=== PATIENT | male | born 1945 | race Caucasian/White ===

== ENCOUNTER 2025-01-14 20:07 | Inpatient (IN) | payer MEDICARE, OTHER, SELFPAY ==
[2025-01-14] VITALS (31 sets, daily range): BP systolic 112–246; BP diastolic 56–127; BMI 31.6; BMI 33.8
[2025-01-14] MEDS: TRANDATE 10 MG IV (16:10)
[2025-01-14 16:12] LABS: Hematocrit 37.7 % (39.0-52.0); Hemoglobin 12.7 g/dL (13.0-18.0); Mean Corp Hgb Conc. 33.7 g/dL (33.0-37.0); Mean Corpuscular Volume 95.4 fL (80.0-94.0); Nucleated Red Blood Cells % 0 % (-); Platelet Count 246 10^3/uL (130-400); Red Cell Dist. Width 12.4 % (11.5-14.5)
[2025-01-14 16:21] LABS: ALT (SGPT) 11 U/L (0-50); AST (SGOT) 16 U/L (17-59); Albumin 3.8 g/dl (3.5-5.0); Alkaline Phosphatase 65 U/L (38-126); Blood Urea Nitrogen 18 mg/dl (9-20); Calcium 9.1 mg/dl (8.4-10.2); Carbon Dioxide 28 mmol/L (22-30); Chloride 107 mmol/L (98-107); Estimated Creatinine Clearance 120 ml/min; Glucose 98 mg/dl (70-99); Magnesium 2.2 mg/dl (1.6-2.3); Potassium 4.1 mmol/L (3.5-5.1); Sodium 137 mmol/L (135-145); Total Protein 6.2 g/dl (6.3-8.2); eGFR > 60.00
--- NOTE | 2025-01-14 16:24 | ED.GENMED ---
History of Present Illness
General
Chief Complaint: Breathing Problem
Source: patient and records
Time Seen by Provider: 01/14/25 15:44
History of Present Illness
History of Present Illness:
79-year-old male with past medical history of hypertension, previous C. difficile colitis, previous prostate cancer presenting to the emergency department for evaluation of feeling unwell over the last few months, today worse with symptoms described
to be very fatigued and gradually worsening shortness of breath. Patient also describes sensation of lightheadedness that now requires him to use a cane to ambulate as he states he feels unsteady on his feet. Patient was supposed to go to the [place]
today for a regularly scheduled visit however states he was feeling too ill to go so decided to go back home and have his bring him here to the ER. Patient denies any fevers or infectious symptoms, chest pain, palpitations, lower extremity
edema, abdominal pain, nausea, vomiting. Patient does report good compliance with his antihypertensive regimen but does not take blood pressures routinely at home, [facility] usually manages blood pressure and he states his last appointment at the [facility] was
few months ago.
Past History
Past History
ED Past Medical History: Cancer (Prostate), HTN and Other (C. difficile recurrent, colitis, irritable bowel syndrome, arthritis, Anemia, ); Negative CAD, Hypercholesterolemia or IDDM
ED Past Surgical History: Orthopedic (L hip replacement, Right knee replacement), Urological (TURP) and Other (pilonidal cyst surgery as a child, wisdom teeth extraction); Negative Cardiac or Cholecystectomy
Social History
Tobacco: Former smoker
Alcohol: None
Drug: None
Personal:
Living: with family
Employment: Employed
Family History
Family History: Hypertension
Review of Systems
Review of Systems
All Other Systems: ROS reviewed and negative except as documented in HPI and ROS
Phy Exam
Physical Exam
Physical Exam:
GENERAL: Alert , in no apparent distress
EYE: conjunctiva clear
NECK: Supple
ENT: o/p clr, mmm.
CARDIAC: Regular rate and rhythm
LUNGS: Clear breath sounds bilaterally, no acute respiratory distress, no wheezes/rales/rhonchi
ABDOMEN: Soft, nontender, nondistended
NEUROLOGICAL: Alert and oriented
SKIN: Warm and dry, skin intact.
MUSCULOSKELETAL: well perfused.
PSYCH: Normal and appropriate interaction.
Scores
Heart Failure Risk
Heart Failure Risk Score: Not Applicable
Heart Score for Chest Pain Patients
STEMI patient?: Not applicable
Withdrawal Assessment of Alcohol
Withdrawal Assessment Completed?: Not applicable
Course
Orders/Labs/Results
Orders:
Orders
01/14/25 12:29
Electrocardiogram (*1) Urgent
Reason for Study: Chest Pain
EKG- Treatment ONCE
01/14/25 Dinner
Cholesterol Lowering
At Your Request: Full Participation
Cholesterol Lowering: Sodium, 2 Gram
01/14/25 15:54
CXR2 [CR Chest - 2 Views ] Urgent
Comment:
Reason For Exam: shortness of breath
01/14/25 16:02
Complete Blood Count/With Diff Urgent
Comprehensive Metabolic Panel Urgent
Magnesium Urgent
NT-proBNP Urgent
Phosphorus Urgent
Comment: ADD ON
TSH Reflex To Free T4 Urgent
Comment: ADD ON
Troponin I Urgent
01/14/25 16:04
CT Head W/o Iv Contrast Urgent
Comment:
Reason For Exam: lightheaded, BP >200/100
Labetalol HCl [Trandate] 10 mg IV NOW STA
01/14/25 17:15
Nicardipine 40 mg/200 ml [Cardene] 40 mg in 200 ml IV PER PROTOCOL
Initial dose in mg/hr, then titrate:: 2.5
Titrate to keep:: SBP 140 - 160 mmHg
Titrate by mg/hr:: 2.5 mg/hr
Frequency of titrations (minutes):: 5-15 minutes
Maximum dose in mg/hr:: 15
Begin to taper infusion when:: Remained at goal for 2hrs
Taper by mg/hr:: 2.5 mg/hr
Frequency of taper (minutes) if patient maintains goal:: every 15-30 minutes
Taper to off?: Yes
If infusion off & no longer maintaining goal:: Contact Provider
01/14/25 19:21
CARDIOLOGY CONSULT Routine
Consulting Provider: Ayden Rogers
Was physician already notified: Yes
Reason for consult: Hypertensive urgency, unassigned odd MR#
01/14/25 19:35
Add On- LAB Routine
Tests Added?: TSH with reflex
01/14/25 19:44
Admit/Transfer Patient As Directed
Co-Sign Provider:
Level of Care: Inpatient admission
Assign to:: ICU
Physician / Group: al villafana
Diagnosis: htn urgency, new NPH
Reason for Hospitalization: htn urgency, new NPH
Expected length of stay greater than two midnights?: Yes
ELOS- Estimated Length of Stay in days: 3
I certify the patient meets the requirements for IP care: Yes
01/14/25 19:46
Code Status As Directed
Resuscitation Status: Full Code
01/14/25 19:48
PRN Pain Medication Management As Directed
May give lesser potent ordered pain med per pt: Yes
preference::
Protocol:: Medication orders for pain may be administered in a
manner that supports deferring to patient preference
when the pt is:
- Requesting an ordered lesser potent pain medication.
Least to most potent pain medications are defined
as: acetaminophen < NSAID < tramadol < opioids
(morphine, oxycodone, hydromorphone).
- Requesting a lesser dose of the same medication IF
ORDERED.
- Requesting a less intrusive route of administration
if both routes are prescribed by the provider (PO <
IV).
01/14/25 21:02
Acetaminophen [Tylenol] 650 mg PO Q4HPRN PRN
Heparin 5,000 units SC Q12
Nicardipine 40 mg/200 ml [Cardene] 40 mg in 200 ml IV PER PROTOCOL
Initial dose in mg/hr, then titrate:: 5
Titrate to keep:: SBP 140 - 160 mmHg
Titrate by mg/hr:: 2.5 mg/hr
Frequency of titrations (minutes):: 5-15 minutes
Maximum dose in mg/hr:: 15
Begin to taper infusion when:: Remained at goal for 2hrs
Taper by mg/hr:: 2.5 mg/hr
Frequency of taper (minutes) if patient maintains goal:: every 15-30 minutes
Taper to off?: Yes
If infusion off & no longer maintaining goal:: Contact Provider
01/14/25 21:02
Activity As Directed
Activity Level: As Tolerated
Old Records Request [Obtain Records] As Directed
Dates of Information to be Released: 2024
Type of Information Requested: H&P
Medication List
Obtain Records from: [facility]
Vital Signs As Directed
Frequency: Per unit guidelines
Weight As Directed
Frequency: Daily
Pt Eval And Treat Routine
Activity Level: As Tolerated
DX Deep Vein Thrombosis Video Routine
01/15/25 03:31
Complete Blood Count/With Diff IN AM
Comprehensive Metabolic Panel IN AM
01/15/25 06:00
Echo 2D MMode Color/Doppler IN AM
Reason for Study: htn urgency
01/16/25 04:41
Complete Blood Count/With Diff IN AM
Comprehensive Metabolic Panel IN AM
Abnormal Lab Results
01/14/25
16:02
RBC 3.95 L 10^6/uL
(4.70-6.10)
Hgb 12.7 L g/dL
(13.0-18.0)
Hct 37.7 L %
(39.0-52.0)
MCV 95.4 H fL
(80.0-94.0)
MCH 32.2 H pg
(27.0-31.0)
Lymphocytes % 17.9 L %
(20.5-51.1)
Creatinine 0.6 L mg/dL
(0.7-1.3)
AST 16 L U/L
(17-59)
Total Protein 6.2 L g/dl
(6.3-8.2)
01/14/25 16:02
01/14/25 16:02
Vital Signs
Initial and Last Documented VS:
Initial Vital Signs
Temp Pulse Resp BP Pulse Ox
98.9 F 77 20 141/101 96
01/14/25 12:26 01/14/25 12:26 01/14/25 12:26 01/14/25 12:26 01/14/25 12:26
Last Documented Vital Signs
Temp Pulse Resp BP Pulse Ox
97.7 F 58 10 151/60 97
01/16/25 03:10 01/16/25 06:06 01/16/25 06:06 01/16/25 06:06 01/16/25 06:00
MDM/Problems Addressed
Differential Diagnosis Includes:
Hypertensive urgency/emergency
Uncontrolled hypertension
Renal dysfunction
CVA
ACS
Valvular dysfunction
MDM/Problems Addressed:
79-year-old male presenting to the ER for evaluation of reportedly feeling unwell for the last 2 months, today worse, found to be profoundly hypertensive here with multiple systolic readings greater than 200 and diastolic readings greater than 100
patient also noting some mild shortness of breath. No tachypnea or tachycardia noted and pulse ox persistently between 97 and 99% on room air. Will treat profound hypertension with labetalol intravenously. Labs CT and EKG ordered. Disposition
pending
Chronic conditions affecting care: HTN
Acute Exacerbation and/or Progression of Chronic Illness: HTN
*Radiology
Radiology exam reviewed: radiology read reviewed
*Pulse Oximetry
SaO2: 99
Oxygen Mode of Delivery: Room air
Patient hypoxic: no
*EKG
Heart Rate: 67
Rate: normal
Rhythm: sinus
[place]: normal axis
Ischemia: T-wave inversion (v4-v6)
*Mannequin Coloring Artist Interpretation
Rate: normal
Heart Rate: 72
Rhythm: sinus
*Critical Care Note
Total Time (30-74mins, 75-104mins- exclusive of procedures): 32
comment:
Critical care statement: A total of 32 minutes of critical care time was provided for this patient. This includes management of unstable vital signs, evaluation of the patient at bedside, reviewing the patient's pertinent medical records, discussion
with consultants, review of old EKGs and review of pertinent medical records. This time with separate from time utilized to perform the aforementioned documented procedures
Data Reviewed
Review of Other/Old Records Reveals: Labs and Records
Patient Management
Discussion with other providers: Hospitalist
Escalation/DeEscalation of care consider admission/obs:
Patient with minimal improvement of his blood pressure following labetalol. Nicardipine drip started. Mild elevation of BNP. Head CT reviewed which does not show any acute abnormalities. Will notify hospitalist team for admission for
hypertensive emergency.
ED Attending Note
-
Portions of this chart may have been created with voice recognition software.� Occasional wrong word or��sound alike� substitutions may have occurred due to the inherent limitations of voice recognition software.
Discharge Plan
Departure
Patient Disposition: Admit
Date of Disposition: 01/14/25
Time of Disposition: 19:02
Presentation/result/management discussed w/ accepting MD/DO: Hospitalist
Discharge Problem:
Hypertensive urgency, Normal pressure hydrocephalus
Interventions
Interventions:
*General Assessment Last Done: 01/14/25 12:26
*Neglect/Abuse Screening Last Done: 01/14/25 12:26
*ED- Fall Risk Assessment Last Done: 01/14/25 15:56
*Nursing Disposition Last Done: 01/14/25 20:47
ED- Cardiac Assessment Last Done: 01/14/25 15:56
ED- Pulmonary Assessment Last Done: 01/14/25 15:56
Discharge Date and Time
Discharge Date/Time: 01/14/25 20:58
[2025-01-14 16:33] LABS: Troponin I 0.016 ng/ml
[2025-01-14] MEDS: CARDENE 200 IV ×2 (17:15→22:23)
--- NOTE | 2025-01-14 19:25 | HPS.HSE ---
Family Physician
-
Family Physician: Yenni Mar
Chief Complaint
-
Fatigue, shortness of breath
History of Present Illness
79-year-old male complaining of feeling unwell over the past few months today with worsening symptoms of fatigue and shortness of breath along with lightheadedness and feeling unsteady on his feet. He was supposed to go to the [place] for a regularly
scheduled visit however he felt too ill and decided to come home and have his bring him to the ER. On arrival he was noted to be hypertensive with hypertensive urgency. He denies headache, blurred vision, fever, chills, chest pain,
palpitations, cough, shortness of breath, lower extremity edema, abdominal pain, nausea, vomiting, diarrhea, urinary symptoms. He reports compliance with antihypertensive regimen he has past medical history of hypertension, prostate cancer,
recurrent C. difficile, colitis, IBS, arthritis, anemia, former smoker, ambulatory dysfunction uses cane at baseline
Medical History
Past Medical History
Past Medical History: Reports Other
Additional Past Medical History:
hypertension
prostate cancer
recurrent C. difficile
colitis
IBS
arthritis
anemia
former smoker
Past Surgical History: Reports Other
Additional Past Surgical History:
L hip replacement, Right knee replacement), Urological (TURP) and Other (pilonidal cyst surgery as a child, wisdom teeth extraction
Social History
Tobacco: Former Smoker (Quit 40 years ago)
Alcohol: None
Drug: None
Personal:
Living: With Family ()
Employment: Retired
Family History
Family History: Not pertinent
Allergies / Home Medications
Allergies reflects when Allergies were last updated in [facility].
Home Medications with original date entered in [facility]
Allergy/Medication List:
Medications on admission are unable to be verified or confirmed at this time.
Patient does not know list states he gets all of his medications from [facility]
Review of Systems
-
History Source: Patient
A 12 point ROS was completed and negative except as noted: Yes
Constitutional: Denies Fever or Fatigue
EENT: Denies Sore Throat or Runny Nose
Respiratory: Reports Trouble Breathing (RAINEY); Denies Cough
Cardiac: Denies Chest Pain, Diaphoresis, Palpitations or Syncope
Abdomen/GI: Denies Abdominal Pain, Nausea, Vomiting, Diarrhea or Constipated
: Denies Dysuria, Frequency, Flank Pain, Incontinence or Difficulty Voiding
Musculoskeletal: Denies Joint Pain or Edema
Skin: Denies Itching or Rash
Neurological: Reports Weakness (Generalized); Denies Dizzy or Headache
Endocrine: Reports No Symptoms
Hematologic/Lymphatic: Reports No Symptoms
Psych: Reports Calm
Physical Exam
Vital Signs
Vital Signs
Temp Pulse Resp BP Pulse Ox
98.9 F 77 13 112/77 96
01/14/25 15:56 01/14/25 19:00 01/14/25 19:00 01/14/25 19:00 01/14/25 18:45
Physical Exam
General: Comfortable, Conversant and Obese; No Pain, Fever or Chills
HEENT: NormoCephalic, Anicteric, Moist mucous membranes, PERRLA, [place] Conjunctivae and No Ptosis
Respiratory: Clear; No Wheezes, Rales or Rhonchi
Cardiac: S1/S2 and Regular Rhythm; No Murmur, Rub, Gallop or Peripheral Edema
Breast: Deferred by me
GI: Soft, Non Tender, Non Distended, Normal Bowel Sounds and No Hepatosplenomegaly
Rectal: Deferred by Provider
Genito-urinary: Deferred by me
Musculoskeletal: No Clubbing, No Cyanosis and No Edema
Skin: Warm and Dry; No Rash or Jaundice
Neuro: AO x 3, No Motor Deficits, Nonfocal/grossly intact and No Sensory Deficits; No Slurred Speech, Facial Droop, Tremors or Sedated
Psych: Calm
Laboratory Results
-
01/14/25 16:02
01/14/25 16:02
Laboratory Results
Total Bilirubin 0.7 mg/dl (0.2-1.3) 01/14/25 16:02
AST 16 U/L (17-59) L 01/14/25 16:02
ALT 11 U/L (0-50) 01/14/25 16:02
Alkaline Phosphatase 65 U/L (38-126) 01/14/25 16:02
Troponin I 0.016 ng/ml 01/14/25 16:02
Data Reviewed
-
Diagnostic Radiology: Report Reviewed by me
CT Scan: Report Reviewed by me
Lab Data: Labs Reviewed by me
Impression/Plan
-
Impression/plan:
Admit to ICU
#Hypertensive urgency/HTN�benign
BP 244/100 post IV Cardene drip 112/77
- Consult CBC cardiology
- Check 2D echo
- Obtain med rec list from [facility] in a.m.
# NEW NPH
- Dr. Diaz made aware states outpatient workup may have physical therapy evaluate gait then undergo LP
CT head: 1. Moderate to severe diffuse distention of the ventricular system suggesting NORMAL PRESSURE COMMUNICATING HYDROCEPHALUS.
Ex vacuo ventricular dilatation is an alternative diagnostic possibility.
2. SEVERE WHITE MATTER LEUKOARAIOSIS in the frontal and parietal lobes.
#Prostate cancer hx
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
#Colitis
#IBS
#Arthritis
#Anemia�macrocytic
Hgb 12.7
#Former smoker
#Chronic ambulatory dysfunction
-Uses cane at baseline
#Class I obesity�BMI 31.6
Affects all aspects of care
Weight loss recommend
DVT prophylaxis
SCDs
Full code
--- NOTE | 2025-01-14 19:31 | W.PN.UPDATE ---
Update Note
Progress Note Update
I have independently examined the patient and agree with assessment and plan written on the same date. In addition:
79yo came with generalized malaise, found HTN urgency and NPH on CT
-Cardene drip, Cardio, Echo
-Neurology consult
-Check TSH
We have spent at least 77min admitting the patient
--- NOTE | 2025-01-14 20:45 | PHANOTE ---
01/14/2025, [facility] [place]; pt. does not know his own meds.; spouse not accessible at time of interview; pt. has no pharmacy records; the meds. that are currently part of his med. list are from 2014 and ecw
records are from 2016; could not confirm pt.'s meds. at time of interview.
[2025-01-14 21:18] LABS: Glucose - Point of Care 116 mg/dl (70-99)
[2025-01-14] MEDS: HEPARIN 5000 UNITS SC (21:35)
[2025-01-14] MEDS: TYLENOL 650 MG PO (21:35)
--- NOTE | 2025-01-14 22:00 | PTCARENOTE ---
Received pt from ED RN, pt pulled over to our bed. Pt is AAOx3, [place] PASS. NSR w/ PVCs on the monitor, trace pedal edema, weak pedals. Received pt on Cardene gtt @ 7.5 mg/hr (see worklist), goal SBP 140-160. Pt on RA O2 sat 94%, lungs diminished. Pt uses
the urinal in bed. CHG bath provided. Call chaparro in reach. Safe environment maintained.
[2025-01-14 22:44] LABS: INR 0.95; PT 13.2 Sec (11.4-14.6)
[2025-01-14 22:45] LABS: APTT 28.4 Sec (23.4-35.0)
[2025-01-15] VITALS (54 sets, daily range): BP systolic 100–181; BP diastolic 46–119; PULSE 86; BMI 33.7
--- NOTE | 2025-01-15 01:09 | PTCARENOTE ---
Systems reviewed, no new changes in assessment. Cardene gtt maintained (see worklist). Call chaparro in reach. Safe environment maintained.
[2025-01-15] MEDS: TYLENOL 650 MG PO ×2 (03:26→09:45)
--- NOTE | 2025-01-15 03:42 | PTCARENOTE ---
Systems reviewed. Cardene gtt maintained. Pt c/o ESPARZA 08/18 pain, PRN Tylenol given (see MAR). AM labs drawn. Call chaparro in reach. Safe environment maintained.
[2025-01-15 03:52] LABS: Hematocrit 38.6 % (39.0-52.0); Hemoglobin 12.8 g/dL (13.0-18.0); Mean Corp Hgb Conc. 33.2 g/dL (33.0-37.0); Mean Corpuscular Volume 96.3 fL (80.0-94.0); Nucleated Red Blood Cells % 0 % (-); Platelet Count 253 10^3/uL (130-400); Red Cell Dist. Width 12.4 % (11.5-14.5)
[2025-01-15 04:19] LABS: ALT (SGPT) 11 U/L (0-50); AST (SGOT) 16 U/L (17-59); Albumin 3.8 g/dl (3.5-5.0); Alkaline Phosphatase 69 U/L (38-126); Blood Urea Nitrogen 13 mg/dl (9-20); Calcium 8.9 mg/dl (8.4-10.2); Carbon Dioxide 28 mmol/L (22-30); Chloride 108 mmol/L (98-107); Estimated Creatinine Clearance 117 ml/min; Glucose 103 mg/dl (70-99); Magnesium 2.2 mg/dl (1.6-2.3); Potassium 3.5 mmol/L (3.5-5.1); Sodium 139 mmol/L (135-145); Total Protein 6.1 g/dl (6.3-8.2); eGFR > 60.00
[2025-01-15] MEDS: KCL 20 MEQ PO (06:13)
--- NOTE | 2025-01-15 07:07 | CON.INTV ---
Addendum entered and electronically signed by Cristy Manzo MD 01/15/25 15:53:
Patient seen and examined independently by myself. History obtained from the patient and reviewing the chart. Resident note reviewed below. Agree with assessment and plan.
Briefly, patient is a pleasant 79-year-old male with history of hypertension. He does not have any other significant medical history. He admits to taking Flomax and clonidine as an outpatient. Records suggest he may have been on lisinopril in the
past. He cannot recall why this may have been stopped. He last saw his primary physician at the [facility] at [place] about 6 months ago. He brought himself into [facility] because of fatigue, lightheadedness and some shortness of breath. He
denied chest pain, fevers, cough. Upon arrival to [facility], afebrile, pulse 77, blood pressure 140s/100s, however increased to 240s/100s at 1 point. Patient was started on Cardene with improvement, admitted to ICU for further management
Patient does not see a dress draper. Denies any recent changes in medication. Denies history of sleep apnea. Denies any change in diet
For details regarding past medical history, family history, social history, review of systems see below. Patient denies any allergies.
Physical exam
Patient currently on room air, large neck, narrow posterior oropharynx
Chest exam is clear, no murmurs
Abdominal exam soft, he is obese
Extremities no clubbing, cyanosis or edema
Neurological exam nonfocal
Data reviewed
Chest x-ray with mild cardiomegaly
EKG with evidence of LVH
Head CT with no acute findings except normal pressure hydrocephalus
A/P
At this time, patient is clinically improved, blood pressure improved with Cardene. He was also started back up on Cardene and lisinopril was added
Patient feels he is presently back to his baseline
Echocardiogram is pending
Patient denies any history of falls, incontinence, nausea
He is not aware of a diagnosis of NPH
Further workup and follow-up will be deferred to his [facility] primary physician
Patient also likely has underlying sleep disordered breathing which may be contributing to his poorly controlled blood pressure
Additionally, unclear whether his pressure is worse because stopped taking his lisinopril
We will try to wean Cardene later today
Patient aware of risks of stroke
It is imperative that he follow-up for blood pressure checks post discharge depending on how he clinically progresses
Reviewed with critical care nursing
Will follow
TCCT 31 min
Original Note:
Consultation
Consultation Request
Date/Time Consultation Requested: January 15, 2025
Date/Time Consultation Performed: January 15, 2025
Medical History
-
Chief Complaint: fatigue, lightheadedness
History of Present Illness:
79 yo M PMH of HTN complaining of fatigue, dyspnea, lightheadedness. He was scheduled to go to [place] for appointment but instead presented to ED because he was not feeling well.
ED course: VS n/f BP in 230s/120s, given labetalol. He endorses headache and dyspnea, but denies blurry vision, chest pain. He was admitted to ICU for further management and is currently on nicardipine.
Interim/overnight, BP ranged 120s to 180s / 80s-90s, most recently 169/85. Was administered acetaminophen for headache.
This morning, he denies headache, blurry vision, chest pain, dyspnea. He denies difficulty speaking or focal muscle weakness.
Past Medical History
Past Medical History: HTN
Social History
Alcohol: None
Drug: None
Personal:
Living: With Family
Allergies / Home Medications
Allergies
Allergy/AdvReac Type Severity Reaction Status Date / Time
No Known Allergies Allergy Verified 01/14/25 12:29
Home Medications
�Medication �Instructions �Recorded �Confirmed �Last Taken �Type
mesalamine 400 mg capsule,delayed 1,200 mg PO BID 01/06/14 01/09/15 01/08/15 History
release (Delzicol)
solifenacin 10 mg tablet (Vesicare) 10 mg PO DAILY 01/06/14 01/09/15 01/08/15 History
aspirin 81 mg tablet,delayed 81 mg PO DAILY ##0 01/12/15 Unknown Rx
release
atorvastatin 10 mg tablet 10 mg PO QPM ##30 01/12/15 Unknown Rx
clonidine HCl 0.1 mg tablet 0.1 mg PO BID ##60 01/12/15 Unknown Rx
clopidogrel 75 mg tablet 75 mg PO DAILY ##30 01/12/15 Unknown Rx
lisinopril 10 mg tablet 10 mg PO DAILY ##30 01/12/15 Unknown Rx
Review of Systems
-
History Source: Patient
Constitutional: No Symptoms
EENT: No Symptoms
Respiratory: Other (denies dyspnea)
Cardiac: Other (denies chest pain)
Abdomen/GI: No Symptoms
: No Symptoms
Musculoskeletal: No Symptoms
Skin: No Symptoms
Neuro: Headache
Endocrine: No Symptoms
Hematologic/Lymphatic: No Symptoms
Vitals / Labs / Diagnostic Testing
Vital Signs
Temp Pulse Resp BP Pulse Ox
98.4 F 71 12 175/66 92
01/15/25 03:46 01/15/25 06:30 01/15/25 06:30 01/15/25 06:30 01/15/25 06:30
Lab Data
01/15/25 03:31
01/15/25 03:31
Laboratory Results
01/14/25
22:28
PT 13.2
INR 0.95
APTT 28.4
Labs
Hgb 12.8
K+ 3.5
Cr 0.5
TSH 2.22
Albumin 3.8
Diagnostic Testing:
CXR: mild cardiomegaly
CT Head noncon: normal pressure hydrocephalus
EKG: normal sinus rhythm with LVH
Physical Exam
-
HEENT: Normocephalic
Cardiovascular: Regular Rhythm and Murmur (no murmur on my exam)
Respiratory: Clear
GI: Soft
Neurology: Awake, Alert and No Motor Deficits
Skin: Warm
General: Comfortable
Assessment
-
In summary, this is a 79 yo M with PMH of HTN presenting with headache, dyspnea, fatigue, lightheadededness in the setting of elevated BP to the 230s/120s with most concern for HTN urgency.
There are no signs of end-organ damage: endorses headache but denies blurry vision, kidney function within normal limits Cr 0.5, mental status within normal limits, denies dyspnea in the AM (no crackles on my exam). Altogether these reassure against
hypertensive emergency.
Given that he gets care at the [facility], we will follow up to reconcile medications and determine which regimen is appropriate.
Neuro:
- communicating appropriately, moving 4 extremities, no focal deficits
- Normal pressure hydrocephalus is a separate issue that is likely not contributing to HTN.
CV:
- nicardipine 40mg IV
- medication reconciliation
Renal:
- Cr 0.5
Heme:
- heparin for dvt ppx: adjust to 5000 q8h given kidney function within normal limits.
Recommendations are not final until attg note/attestation
Data Reviewed
-
Radiology: Report reviewed by me
CT Scan: Report reviewed by me
[2025-01-15] MEDS: HEPARIN 5000 UNITS SC ×2 (08:24→16:22)
[2025-01-15] MEDS: CARDENE 200 IV (08:24)
--- NOTE | 2025-01-15 09:11 | PTCARENOTE ---
report received, assessments per work list. patient with slight droop right eyelid, patient states this is preexisting and his baseline. monitor nsr, cardene adjustment as per orders. denies headache. using urinal, oob to chair to commode. smear of
stool. call chaparro in reach
--- NOTE | 2025-01-15 12:17 | CM ---
Initial assessment completed with patient who lives with his in a 2 story home plus basement with B/B on 2nd, no bath on 1st, no steps to enter home. 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 He also has a RW in the home
but does not use. He does drive. No in-home services. No HC-POA. Was in the [employer] during [place] [employer] and has VA benefits. PCP is Dr. Yenni Mar at the [place]. Pharmacy is [facility] on [address] in [place]. Discharge POC: Anticipate home with no
needs.
--- NOTE | 2025-01-15 12:32 | CON.CAR ---
Addendum entered and electronically signed by Ayden Rogers MD 01/15/25 19:04:
79-year-old man admitted with hypertensive urgency, is followed in the [place] medical system. Chronically on clonidine for hypertension, details of his management strategy currently unknown. He states he does have some issues with cognition and has
had difficulty with balance. He denies urinary incontinence.
PMH: Hypertension, prostate cancer, TIA 2015, history of colitis, hypercholesterolemia, BPH (old problem list includes normal pressure hydrocephalus and orthostasis)
PSH: Left total hip arthroplasty, pilonidal cyst
SH: , smoked as a teen, no alcohol, retired
Rest of per Eva Schmitt as below.
135/81 upon presentation 238/95, pulse 73, respirate 16, weight 100.4 kg, pleasant, somewhat slow to respond, head neck exam unremarkable, neuro nonfocal, lungs clear, regular rate and rhythm without obvious murmur, abdomen benign, extremities
without clubbing cyanosis or edema
Head CT dilatation of the ventricular system severe white matter leukoaraiosis
Chest x-ray: Cardiomegaly EKG sinus rhythm, LVH lateral T wave changes consistent with LVH
Hemoglobin 12.8, potassium 3.5, BUN/creatinine 13 and 0.5, proBNP 1170, troponin 0.016
Echo: Pending, last echo 2014 EF 55-60%
Impression:
Hypertensive urgency
Suspicion for normal pressure hydrocephalus
Remote TIA
History of prostate cancer hypercholesterolemia
History of colitis
BPH
Macrocytosis
Plan:
He presents with hypertensive urgency, blood pressure now better controlled. As an outpatient he had been on clonidine only, and states he had not missed any doses, so rebound hypertension likely not an issue unless he is incorrect in stating he
has not missed clonidine. Now on lisinopril. Will uptitrate medications as needed for his blood pressure.
CT scan suggestive of normal pressure hydrocephalus and he has 2 of 3 characteristics (denies incontinence) with some gait difficulties and memory issues. Defer to hospitalist in this regard.
Await echocardiogram.
Defer to hospitalist whether evaluation is warranted regarding normal pressure hydrocephalus. There is a link between hypertension and NPH.
proBNP was modestly elevated and troponin was minimally detectable. We can decide whether or not an ischemic evaluation is necessary as an outpatient. However detectable troponin is a non-ACS myocardial injury.
We will continue to follow.
Original Note:
Consultation
Consultation Request
Date/Time Consultation Requested: 01/14/25 at 1921
Date/Time Consultation Performed: 01/15/25 at 1232
Requesting Provider: Dr. Lozada
Performing Provider: Dr. KIESHA Rogers
Reason for Consultation: HTN urgency
Medical History
-
History of Present Illness:
Patient came to the ER yesterday with generalized weakness after he was unable to make it to his previously scheduled [place] doctor appointment and was admitted to the hospital with HTN urgency and cardiology is now consulted. Patient does not see a
grain elevator agent as an outpatient, but does follow with his doctors at the [place] and is seen at least every 6 months. He says that he saw Dr. Mar at the [place] 1 month ago, but does not remember if his blood pressure was taken. He does not recall any
recent medication changes. Patient is chronically on clonidine 0.2 mg BID for HTN, but does not recall if he has had reactions or been unresponsive to other BP meds in the past. Patient denies any previous cardiac testing. Patient denies previous
admission for HTN urgency/emergency. Patient has had previous admission to [facility] for colitis, but is not frequently in the ER or requiring admission. He says he does not go to another hospital. I was able to find his discharge summary from
admission for TIA back in 2014 at that time he was taking clonidine 0.1 mg BID plus lisinopril 10 mg daily and it is unclear when lisinopril was stopped or why. Patient was also taking lisinopril had an ER visit here in 2021 for fever.
PMH:
h/o HTN with LVH
h/o prostate CA
h/o IBS and colitis
Past Medical History
Past Medical History: Other (in HPI)
Past Surgical History: Orthopedic (left DION) and Other (pilonidal cyst as a child)
Social History
Tobacco: Former Smoker (smoked age 18)
Alcohol: None
Drug: None
Personal:
Living: With Family
Family History
Family History: Hypertension
Allergies / Home Medications
Allergy/AdvReac Type Severity Reaction Status Date / Time
No Known Allergies Allergy Verified 01/14/25 12:29
�Medication �Instructions �Recorded �Confirmed �Type
aspirin 325 mg tablet 325 mg PO DAILY Blood Clot 01/15/25 01/15/25 History
Prevention/Tx
atorvastatin 10 mg tablet 10 mg PO QPM High Cholesterol 01/15/25 01/15/25 History
calcium 500 mg (as 1 tab PO BID Supplement 01/15/25 01/15/25 History
carbonate)-vitamin D3 5 mcg (200
unit) tablet (Calcium 500 + D)
clonidine HCl 0.2 mg tablet 0.2 mg PO BID Blood Pressure 01/15/25 01/15/25 History
tamsulosin 0.4 mg capsule 0.4 mg PO QPM Urinary Issue 01/15/25 01/15/25 History
vit C 250 mg-E 90 mg-zinc 40 1 tab PO QAM AND QPM Supplement 01/15/25 01/15/25 History
mg-copper 1 wt-tjryqw-ebjqqu chew
tablet (PreserVision AREDS-2)
Review of Systems
-
History Source: Patient
All other systems: Negative unless noted
Physical Exam
Vital Signs
Temp Pulse Resp BP Pulse Ox
98.3 F 78 17 153/75 95
01/15/25 11:49 01/15/25 11:45 01/15/25 11:45 01/15/25 11:45 01/15/25 11:45
GEN: NAD. AAOx3
HEENT: EOMI, MMM
LUNGS: RA. CTA B/L, no wheeze
CV: SR on tele. Reg, S1/S2, no murmur
ABD: soft, BS+, NT, ND
EXT: No clubbing, cyanosis, lesions or edema B/L
NEURO: Gross non-focal
SKIN: Warm, dry and pink. No rash
Lab Results
01/15/25 03:31
01/15/25 03:31
Troponin I 0.016 ng/ml 01/14/25 16:02
Ufv-F-Fwmuvetnffq Pept 1170 pg/ml 01/14/25 16:02
Impression / Plan
-
PCP: Dr. Mar through the [place]
Card: None prior to admission
Impression:
Admitted with HTN urgency 01/14/[address] head, apparently a new diagnosis, 01/14/25
HTN urgency
h/o HTN with LVH
h/o prostate CA
h/o IBS and colitis
Macrocytic anemia
Echo 01/10/2015: TDS, EF 55 to 60%, moderate concentric LVH, no intracardiac mass or thrombus
Echo 01/15/2025: Study pending
Plan:
-Patient came to the ER yesterday with generalized weakness after he was unable to make it to his previously scheduled [place] doctor appointment and was admitted to the hospital with HTN urgency and cardiology is now consulted. Patient does not see a
grain elevator agent as an outpatient, but does follow with his doctors at the [place] and is seen at least every 6 months. He says that he saw Dr. Mar at the [place] 1 month ago, but does not remember if his blood pressure was taken. He does not recall any
recent medication changes. Patient is chronically on clonidine 0.2 mg BID for HTN, but does not recall if he has had reactions or been unresponsive to other BP meds in the past. Patient denies any previous cardiac testing. Patient denies previous
admission for HTN urgency/emergency. Patient has had previous admission to [facility] for colitis, but is not frequently in the ER or requiring admission. He says he does not go to another hospital. I was able to find his discharge summary from
admission for TIA back in 2014 at that time he was taking clonidine 0.1 mg BID plus lisinopril 10 mg daily and it is unclear when lisinopril was stopped or why. Patient was also taking lisinopril had an ER visit here in 2021 for fever.
-ECG reviewed by me as NSR with repolarization abnormality, but no acute ST changes
-Outpatient dose of clonidine 0.2 mg BID was stopped on admission for unclear reasons and I have restarted ordering an urgent dose for now. Clonidine should not be abruptly stopped.
-Cardene gtt started in the ER and was down to 2 mg/hr this morning, but then BP increased and now back up to 5 mg/hr. Goal is to wean Cardene today.
-In addition to restarting clonidine will also start lisinopril 10 mg daily with a now dose, orders placed by me. Patient had been on lisinopril on records I can find from ER visits in 2014 and 2021 and it is not clear why it may have been stopped.
There is no evidence on lab work that would preclude restarting lisinopril and no allergy listed.
-Check echo, study pending and EF previously preserved
-Patient diagnosed with NPH on CT scan in the ER yesterday, not sure if there is any plan for workup at this time
--- NOTE | 2025-01-15 12:59 | PTCARENOTE ---
patient reassessed. cardene per work list. ambulated in room with PT, rolling walker. spouse brought in home medications for med reconciliation. entered by pharmacy. spouse, patient instructed to bring meds home when spouse visits later today
[2025-01-15] MEDS: CATAPRES 0.2 MG PO ×2 (13:49→19:40)
[2025-01-15] MEDS: ZESTRIL 10 MG PO (13:49)
--- NOTE | 2025-01-15 14:46 | CARDSERVDEF ---
Echocardiogram with Definity completed after protocol screening completed. Allergies verified.
Patent IV site: __Rt AC___
IV site flushed with 0.9% NaCl pre and post administration.
Diluted bolus method utilized to enhance visualization of ventricular moise.
Total volume given: __1.5__ mL
Patient tolerated all procedures well without complications.
--- NOTE | 2025-01-15 15:47 | W.PN.HOSP.TC ---
Today's Communication/Plan
-
Neuro consult
Once BP is controlled, will plan on dc for outpt evaluation, ? at DC
Assessment / Plan
Assessment / Plan
Admit to ICU
#Hypertensive urgency/HTN�benign
BP 244/100 post IV Cardene drip 112/77, Cardene being weaned off
- Consulted [facility] cardiology
- 2D echo: Normal left ventricular chamber size. Moderate concentric left ventricular
hypertrophy. Technically difficult study with suboptimal imaging due to body
habitus. LIMITED VIEWS !!! The aortic root is top normal to mildly dilated in
siz
The IVC was not well visualized. In limited views, there is no clear evidence
of shunting via color flow doppler. No intracardiac mass or thrombus formation
seen
Overall, LV systolic function is probably normal. Left ventricular ejection
fraction is 55-60%.
No prior study available for comparison.
- Obtain med rec list from [facility] was on Clonidine, Lisinopril 10 mg daily added
BP most recently 140/74
# NEW NPH
- Neuro consult placed, texted that 'this is a chronic degenerative neurologic disorder and can be seen later'
CT head: 1. Moderate to severe diffuse distention of the ventricular system suggesting NORMAL PRESSURE COMMUNICATING HYDROCEPHALUS.
Ex vacuo ventricular dilatation is an alternative diagnostic possibility.
2. SEVERE WHITE MATTER LEUKOARAIOSIS in the frontal and parietal lobes.
#Prostate cancer hx
will resume usual dose of Flomax
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
#Colitis
#IBS
#Arthritis
#Anemia�macrocytic
Hgb 12.7
#Former smoker
#Chronic ambulatory dysfunction
-Uses cane at baseline
#Class I obesity�BMI 31.6
Affects all aspects of care
Weight loss recommend
DVT prophylaxis
SCDs
call placed to for update, no answer and voice mailbox 'has not been set up yet'
Full code
Anticipated Discharge: 24 - 48 hours
Subjective/Interval History
-
Date of Service: January 15, 2025
Awake, alert
Objective Data
-
Labs:
Laboratory Results
01/15/25
03:31
WBC 7.1
Hgb 12.8 L
Hct 38.6 L
Plt Count 253
Sodium 139
Potassium 3.5
Chloride 108 H
Carbon Dioxide 28
BUN 13
Creatinine 0.5 L
Glucose 103 H
Calcium 8.9
Total Bilirubin 1.1
AST 16 L
ALT 11
Alkaline Phosphatase 69
Vital Signs:
Vital Signs
Temp Pulse Resp BP Pulse Ox
98.4 F 85 15 140/74 96
01/15/25 15:13 01/15/25 15:00 01/15/25 15:00 01/15/25 15:00 01/15/25 15:00
I&O
01/14/25 01/15/25 01/16/25
06:59 06:59 06:59
Intake Total 387.5 / 400.0 977.5 / 977.5
Output Total 1000 / 1000 600 / 600
Balance -612.5 / -600.0 377.5 / 377.5
Review of Systems
-
History Source: Patient and Coordinated Provider
Constitutional: Denies Fever
EENT: Reports No Symptoms Reported
Respiratory: Reports No Symptoms
Cardiac: Reports No Symptoms
Abdomen/GI: Reports No Symptoms
Genitourinary: Reports No Symptoms
Physical Exam
-
General: Well Developed, Well Nourished and No Apparent Distress
HEENT: Normocephalic, Atraumatic and Moist Mucous Membranes
Respiratory: Clear to Auscultation; Negative Wheezes, Rales or Rhonchi
Cardiac: Regular Rhythm and S1/S2
GI: Soft, Nontender and Nondistended
Musculoskeletal: No Clubbing, No Cyanosis and No Edema
Skin: Warm, Dry and Rash
Neuro: Awake, Alert and Oriented
--- NOTE | 2025-01-15 16:28 | PTCARENOTE ---
reassessed, Cardene weaned to off. c/o fatigue, denies any other complaints. resting call chaparro in reach
[2025-01-15 19:23] LABS: Hepatitis C Antibody Negative (Negative)
--- NOTE | 2025-01-15 20:00 | PTCARENOTE ---
Received pt finishing dinner in bed, AAOx3. Forgetful at times. Pt. without complaints. Flat affect. SR on tele, HR 60s-70s. BP 170s/70s. Scheduled clonidine given - now 156/92. Will monitor. Remains off cardene gtt. +1 LE edema. Afebrile. On RA.
Lungs dim at bases. Round, obese abd. Ate 100% dinner- on low cholesterol, low Na diet. Voiding in urinal. Call chaparro in reach.
[2025-01-15] MEDS: FLOMAX 0.4 MG PO (22:11)
[2025-01-15] MEDS: MELATONIN 5 MG PO (22:11)
[2025-01-16] VITALS (18 sets, daily range): BP systolic 107–168; BP diastolic 48–95; BMI 31.7
[2025-01-16] MEDS: HEPARIN 5000 UNITS SC ×4 (00:38→23:00)
--- NOTE | 2025-01-16 00:43 | PTCARENOTE ---
Pt resting when undisturbed. Pt without complaints.
[2025-01-16 04:55] LABS: Hematocrit 35.0 % (39.0-52.0); Hemoglobin 12.4 g/dL (13.0-18.0); Mean Corp Hgb Conc. 35.4 g/dL (33.0-37.0); Mean Corpuscular Volume 94.3 fL (80.0-94.0); Nucleated Red Blood Cells % 0 % (-); Platelet Count 207 10^3/uL (130-400); Red Cell Dist. Width 12.4 % (11.5-14.5)
[2025-01-16 05:25] LABS: ALT (SGPT) 10 U/L (0-50); AST (SGOT) 20 U/L (17-59); Albumin 3.5 g/dl (3.5-5.0); Alkaline Phosphatase 48 U/L (38-126); Blood Urea Nitrogen 18 mg/dl (9-20); Calcium 8.4 mg/dl (8.4-10.2); Carbon Dioxide 23 mmol/L (22-30); Chloride 109 mmol/L (98-107); Estimated Creatinine Clearance 117 ml/min; Glucose 99 mg/dl (70-99); Potassium 4.3 mmol/L (3.5-5.1); Sodium 135 mmol/L (135-145); Total Protein 5.9 g/dl (6.3-8.2); eGFR > 60.00
--- NOTE | 2025-01-16 07:51 | W.PN.INTV ---
Addendum entered and electronically signed by Cristy Manzo MD 01/16/25 12:56:
Amlodipine will be held given drop in blood pressure
Remains on lisinopril, clonidine
Transfer to telemetry. We will sign off. Please call with questions
Addendum entered and electronically signed by Cristy Manzo MD 01/16/25 12:53:
Patient seen and examined by myself independently. Resident note reviewed below. Agree with assessment and plan
Patient is feeling much improved. He feels he is back to his baseline. Blood pressure control seems to be improved, weaned off Cardene as of yesterday
Remains on clonidine, lisinopril
Denies chest pain, shortness of breath
Physical exam unremarkable, chest exam is clear
Data reviewed
A/P
At this time, patient appears to be improved
Denies chest pain, shortness of breath.
Off Cardene drip
Moving forward, continue with management per cardiology, continues with lisinopril, amlodipine
Patient continues with clonidine
Cardiology would like to observe blood pressures to confirm no evidence of hypotension over the next 24 hours
Reviewed with critical care nursing, respiratory care, pharmacy
Reviewed with primary service
For transfer to telemetry. We will sign off. Please call with questions
Original Note:
Today's Communication / Plan
Recommendations
Summary:
- continue clonidine, lisinopril
- discharge to home
Recommendations are not final until attg note/attestation
Assessment
-
In summary, this is a 79 yo M with PMH of HTN presenting with hypertensive urgency that has resolved.
Nicardipene has been stopped, He is on home BP regimen (clonidine, lisinopril). BP range has been within appropriate limits. He denies symptoms that may suggest end-organ damage. Creatinine is within normal limits. He is able to ambulate with walker
and out-of-bed.
Consider discharge to home.
Plan by pertinent system block is below:
Neuro:
- communicating appropriately, moving 4 extremities, no focal deficits
- Normal pressure hydrocephalus is a separate issue that is not contributing to HTN.
CV:
- clonidine, lisinopril for HTN
- Echocardiogram was LVEF 65% per above
Renal:
- Cr 0.5
Summary:
- continue clonidine, lisinopril
- discharge to home
Recommendations are not final until attg note/attestation
Subjective Dataa
Subjective Data
Date of Service:
Date of Service: January 16, 2025
Subjective:
79 yo M PMH of HTN p/w hypertensive urgency without signs of end-organ dysfunction.
Interim events: medication reconciliation was performed, his home regimen is lisinopril and clonidine. Blood pressures have been within appropriate limits and patient is ambulating
Patient has been off nicardipene since yesterday morning and has resumed home regimen.
This morning, no acute events, and denies headache, blurry vision, chest pain, dyspnea.
Review of Systems
General: Other (per HPI)
Objective Data
Data Reviewed
Vital Signs / I&O / Oxygen:
Vital Signs
Temp Pulse Resp BP Pulse Ox
97.7 F 58 10 151/60 97
01/16/25 03:10 01/16/25 06:06 01/16/25 06:06 01/16/25 06:06 01/16/25 06:00
Intake and Output
01/15/25 01/16/25 01/17/25
06:59 06:59 06:59
Intake Total 387.5 / 400.0 1470.0 / 1470.0
Output Total 1000 / 1000 1450 / 1450
Balance -612.5 / -600.0 20.0 / 20.0
SaO2 97
Physical Exam
General: Comfortable
HEENT: Normocephalic
Cardiovascular: Other (no murmurs)
Respiratory: Clear
GI: Soft and Non Tender
Neurology: Awake, Alert and No Motor Deficits
Skin: Warm and Dry
Labs/Micro/Reports
Lab Data
01/16/25 04:41
01/16/25 04:41
Labs
Hgb 12.4
Cr 0.6
Cardiovascular:
Echocardiogram 01/15/2025
CONCLUSIONS
1. Technically difficult study - Definity used.
2. Mild left ventricular hypertrophy with preserved systolic function,
ejection fraction approximately 65%, no obvious regional wall motion
abnormalities
3. Trace mitral regurgitation with normal left atrium
4. Aortic sclerosis with trace aortic regurgitation
5. Grossly normal right heart, pulmonary artery systolic pressure is normal
[2025-01-16] MEDS: ZESTRIL 10 MG PO ×2 (08:35→20:08)
[2025-01-16] MEDS: CATAPRES 0.2 MG PO ×2 (08:35→20:08)
--- NOTE | 2025-01-16 08:49 | PTCARENOTE ---
Assumed care of pt from cnc machinist 2nd shift RN. AAOx3. Slow to respond at times. NSR on tele, HRs 60s-70s. SpO2 96% on room air. BP 156/73 MAP 93. Pt without complaint at this time. Resting in bed, call chaparro in reach. Assessment documented.
--- NOTE | 2025-01-16 10:10 | W.PN.CARDCBS ---
Addendum entered and electronically signed by Ayden Rogers MD 01/16/25 11:31:
BP dropped to approximately 107 after a.m. lisinopril 10 mg daily.
I had written for additional lisinopril and amlodipine this morning which has not been given, and was planning to give amlodipine 5 mg every bedtime.
Based on sensitivity to lisinopril, with hypertension through the night and into the installer inspector final, will change lisinopril to 10 mg twice daily and hold off on amlodipine. Patient still on clonidine.
From my standpoint can still leave ICU.
Original Note:
Today's Communication / Plan
-
Add amlodipine
Uptitrate lisinopril
Okay to transfer out of ICU
Impression / Plan
-
PCP: [facility]
Card: None prior to admission
Impression:
Admitted with HTN urgency 01/14/[address] head, apparently a new diagnosis, 01/14/25
HTN urgency
h/o HTN with LVH
h/o prostate CA
h/o IBS and colitis
Macrocytic anemia
Echo 01/10/2015: TDS, EF 55 to 60%, moderate concentric LVH, no intracardiac mass or thrombus
Echo 01/15/2025: Study pending
Plan:
At present he is comfortable and seems relatively stable regarding his hypertensive urgency.
However, his blood pressure is still significantly elevated despite marked improvement compared to admission.
Will double lisinopril and add amlodipine. Continue clonidine.
For now we will not initiate evaluation for secondary causes though this may be appropriate as an outpatient.
Okay to transfer out of ICU. If blood pressure is reasonable, could be discharged tomorrow
Defer evaluation of possible normal pressure hydrocephalus to primary team
His echocardiogram is satisfactory.
We will arrange for outpatient cardiac follow-up.
Progress Note - Nuclear Physicist
Subjective
Date of Service: January 16, 2025:
79-year-old man admitted with hypertensive urgency, is followed in the [place] medical system. Chronically on clonidine for hypertension, details of his management strategy currently unknown. He states he does have some issues with cognition and has
had difficulty with balance. He denies urinary incontinence.
PMH: Hypertension, prostate cancer, TIA 2014, history of colitis, hypercholesterolemia, BPH (old problem list includes normal pressure hydrocephalus and orthostasis)
PSH: Left total hip arthroplasty, pilonidal cyst
SH: , smoked as a teen, no alcohol, retired
Rest of per Eva Schmitt as below.
Current meds: Heparin, clonidine 0.2 twice daily, lisinopril 10 daily, tamsulosin 0.4 daily, melatonin
168/88, 135/95, as low as 100/46, pulse 77, intake and output roughly even, weight is 100 kg, head neck exam unremarkable lungs are clear, no obvious murmurs, abdomen benign, extremities without edema
Hemoglobin 12.4, BUN and creatinine are 18 and 0.6
Objective
Labs:
01/16/25 04:41
01/16/25 04:41
Labs
Hgb 12.4 g/dL (13.0-18.0) L 01/16/25 04:41
Hct 35.0 % (39.0-52.0) L 01/16/25 04:41
Plt Count 207 10^3/uL (130-400) 01/16/25 04:41
PT 13.2 Sec (11.4-14.6) 01/14/25 22:28
INR 0.95 01/14/25 22:28
APTT 28.4 Sec (23.4-35.0) 01/14/25 22:28
Sodium 135 mmol/L (135-145) 01/16/25 04:41
Potassium 4.3 mmol/L (3.5-5.1) 01/16/25 04:41
BUN 18 mg/dl (9-20) 01/16/25 04:41
Creatinine 0.6 mg/dL (0.7-1.3) L 01/16/25 04:41
Glucose 99 mg/dl (70-99) 01/16/25 04:41
Troponins
01/14/25
16:02
Troponin I 0.016
Vital Signs and I&O:
Vital Signs
Temp Pulse Resp BP Pulse Ox
36.5 C 77 20 168/88 95
01/16/25 08:45 01/16/25 09:30 01/16/25 09:30 01/16/25 09:19 01/16/25 09:30
Vital Signs
Temp Pulse Resp BP Pulse Ox
36.5 C 77 20 168/88 95
01/16/25 08:45 01/16/25 09:30 01/16/25 09:30 01/16/25 09:19 01/16/25 09:30
Intake & Output
01/14/25 01/15/25 01/16/25 01/17/25
07:59 07:59 07:59 07:59
Intake Total 400.0 / 425.0 1457.5 / 1457.5 240 / 240
Output Total 1000 / 1000 1450 / 1450 150 / 150
Balance -600.0 / -575.0 7.5 / 7.5 90 / 90
Physical Exam
Physical Exam
See above
--- NOTE | 2025-01-16 14:18 | PTCARENOTE ---
Pt assisted back to bed from chair. Assessment unchanged. Transfer to tele order placed. Awaiting bed assignment at this time. Call chaparro in reach, bed locked in lowest position.
--- NOTE | 2025-01-16 15:27 | CM ---
Patient transferred to Room 437. Discharge POC: HH vs outpatient PT.
--- NOTE | 2025-01-16 16:05 | W.PN.HOSP.TC ---
Today's Communication/Plan
-
follow BP
Assessment / Plan
Assessment / Plan
Admit to ICU
#Hypertensive urgency/HTN�benign
BP 244/100 post IV Cardene drip 112/77, Cardene has been weaned off
- Consulted [facility] cardiology. Okay to transfer OOICU. They would like pt to be evaluated in the morning with potential dc to follow
- 2D echo: Normal left ventricular chamber size. Moderate concentric left ventricular
hypertrophy. Technically difficult study with suboptimal imaging due to body
habitus. LIMITED VIEWS !!! The aortic root is top normal to mildly dilated in
siz
The IVC was not well visualized. In limited views, there is no clear evidence
of shunting via color flow doppler. No intracardiac mass or thrombus formation
seen
Overall, LV systolic function is probably normal. Left ventricular ejection
fraction is 55-60%.
No prior study available for comparison.
- Obtained med rec list from [facility] was on Clonidine, Lisinopril 10 mg daily has been added
BP most recently 140/74
# CT scan raises consideration for NEW NPH
- Neuro consult placed, neuro felt that this would be best evaluated as an outpatient
CT head: 1. Moderate to severe diffuse distention of the ventricular system suggesting NORMAL PRESSURE COMMUNICATING HYDROCEPHALUS.
Ex vacuo ventricular dilatation is an alternative diagnostic possibility.
2. SEVERE WHITE MATTER LEUKOARAIOSIS in the frontal and parietal lobes.
#Prostate cancer hx
will resume usual dose of Flomax
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
#Colitis
#IBS
#Arthritis
#Anemia�macrocytic
Hgb 12.7
#Former smoker
#Chronic ambulatory dysfunction
-Uses cane at baseline
#Class I obesity�BMI 31.6
Affects all aspects of care
Weight loss recommend
DVT prophylaxis
SCDs
reviewed with on patient's phone from room. Importance of obtaining BP cuff and checking BP 1-2x per day and record. Bring readings to outpt visit.
Will need to follow up with outpt neurologist post dc for evaluation of potential NPH for possible shunt placement.
Pt has received outpt care from Dr. Mar at the [facility] in [place]. Will need reeval either there or alternative location shortly after dc
Full code
Anticipated Discharge: Within 24 hours
Subjective/Interval History
-
Date of Service: January 16, 2025
Awake, alert, conversant
Objective Data
-
Labs:
Laboratory Results
01/16/25
04:41
WBC 5.6
Hgb 12.4 L
Hct 35.0 L
Plt Count 207
Sodium 135
Potassium 4.3
Chloride 109 H
Carbon Dioxide 23
BUN 18
Creatinine 0.6 L
Glucose 99
Calcium 8.4
Total Bilirubin 1.2
AST 20
ALT 10
Alkaline Phosphatase 48
Vital Signs:
Vital Signs
Temp Pulse Resp BP Pulse Ox
97.6 F 65 18 164/77 98
01/16/25 15:28 01/16/25 15:28 01/16/25 15:28 01/16/25 15:28 01/16/25 15:28
I&O
01/15/25 01/16/25 01/17/25
06:59 06:59 06:59
Intake Total 387.5 / 400.0 1470.0 / 1470.0 240 / 240
Output Total 1000 / 1000 1450 / 1450 275 / 275
Balance -612.5 / -600.0 20.0 / 20.0 -35 / -35
Review of Systems
-
History Source: Patient and Coordinated Provider
Constitutional: Denies Fever
EENT: Reports No Symptoms Reported
Respiratory: Reports No Symptoms
Cardiac: Reports No Symptoms
Abdomen/GI: Reports No Symptoms
Genitourinary: Reports No Symptoms
Neuro: Reports Other (speech is more fluent today)
Physical Exam
-
General: Well Developed, Well Nourished and No Apparent Distress
HEENT: Normocephalic, Atraumatic and Moist Mucous Membranes
Respiratory: Clear to Auscultation; Negative Wheezes, Rales or Rhonchi
Cardiac: Regular Rhythm and S1/S2
GI: Soft, Nontender and Nondistended
Musculoskeletal: No Clubbing, No Cyanosis and No Edema
Skin: Warm, Dry and Rash
Neuro: Awake, Alert and Oriented
[2025-01-16] MEDS: MELATONIN 5 MG PO (21:23)
[2025-01-16] MEDS: FLOMAX 0.4 MG PO (21:23)
[2025-01-17] VITALS (7 sets, daily range): BP systolic 118–188; BP diastolic 66–89; BMI 32.3
[2025-01-17 07:06] LABS: Blood Urea Nitrogen 18 mg/dl (9-20); Calcium 8.5 mg/dl (8.4-10.2); Carbon Dioxide 26 mmol/L (22-30); Chloride 110 mmol/L (98-107); Estimated Creatinine Clearance 114 ml/min; Glucose 95 mg/dl (70-99); Potassium 4.1 mmol/L (3.5-5.1); Sodium 137 mmol/L (135-145); eGFR > 60.00
[2025-01-17] MEDS: HEPARIN 5000 UNITS SC ×2 (09:16→16:32)
[2025-01-17] MEDS: ZESTRIL 10 MG PO ×2 (09:16→16:31)
[2025-01-17] MEDS: CATAPRES 0.2 MG PO ×2 (09:16→16:30)
--- NOTE | 2025-01-17 12:32 | W.PN.HOSP.TC ---
Today's Communication/Plan
-
d/c when BP improved. Added Amlodipine in HS
Assessment / Plan
Assessment / Plan
79yo M with PMHX of prostate CA, HTN, IBS found new NPH on CT head and HTN urgency.
A/P:
#HTN urgency
asymptomatic
Cardio for BP mgmt
Echo: EF 65%, trace MR, with trace AR, no obvious wall motion abnormalities
#NPH
outpatient neurology as discussed with service
#BPH
watch for urinary retention
#malaise
PT/OT for home PT
TSH WNL
#HLD
cont lipitor
DVT ppx hep
Full code
I have spent at least 38min reviewing chart, test results and providing direct patient care
Anticipated Discharge: Within 24 hours
Subjective/Interval History
-
Date of Service: January 17, 2025
Objective Data
-
Labs:
Laboratory Results
01/17/25
06:11
Sodium 137
Potassium 4.1
Chloride 110 H
Carbon Dioxide 26
BUN 18
Creatinine 0.6 L
Glucose 95
Calcium 8.5
Vital Signs:
Vital Signs
Temp Pulse Resp BP Pulse Ox
98.8 F 66 20 158/80 95
01/17/25 11:00 01/17/25 11:00 01/17/25 11:00 01/17/25 11:00 01/17/25 11:00
I&O
01/16/25 01/17/25 01/18/25
06:59 06:59 06:59
Intake Total 1470.0 / 1470.0 520 / 520
Output Total 1450 / 1450 675 / 675
Balance 20.0 / 20.0 -155 / -155
Review of Systems
-
History Source: Patient
All other systems: Reviewed and negative
Physical Exam
-
General: No Apparent Distress
HEENT: Normocephalic
Cardiac: Regular Rhythm
GI: Soft, Nontender and Nondistended
Musculoskeletal: No Clubbing, No Cyanosis and No Edema
Neuro: Awake, Alert, Oriented and AO x 3
Psych: Calm
[2025-01-17] MEDS: LIPITOR 10 MG PO (17:26)
--- NOTE | 2025-01-17 18:23 | W.PN.CARDCBS ---
Today's Communication / Plan
-
Amlodipine added
Blood pressure very labile
Check plasma metanephrines/aldosterone/PRA, levels may be influenced by IDA inhibitor/clonidine
Check orthostatic blood pressures
Impression / Plan
-
PCP: Dr. Mar through the [place]
Card: None prior to admission
Impression:
Admitted with HTN urgency 01/14/[address] head, apparently a new diagnosis, 01/14/25
HTN urgency
h/o HTN with LVH
h/o prostate CA
h/o IBS and colitis
Macrocytic anemia
Echo 01/10/2015: TDS, EF 55 to 60%, moderate concentric LVH, no intracardiac mass or thrombus
Echo 01/15/2025: EF 65%, trace MR, aortic sclerosis with trace aortic regurgitation, grossly normal right heart, pulmonary artery systolic pressure is normal
Plan:
He is doing reasonably well from the standpoint of hypertensive urgency, but still with very labile blood pressure as high as 188 systolic and as low as 116.
Agree with adding amlodipine at bedtime, though it may be difficult to optimize BP without producing hypotension.
Results may be skewed by IDA inhibitor and clonidine but will check metanephrines and aldosterone/PRA.
Hopefully home within 24 to 48 hours if blood pressure is reasonable and not hypotensive.
Unclear whether NPH is playing a role.
His echocardiogram is satisfactory.
We will arrange for outpatient cardiac follow-up.
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
Subjective
Date of Service: January 17, 2025:
79-year-old man admitted with hypertensive urgency, is followed in the [place] medical [facility]. Chronically on clonidine for hypertension, details of his management strategy currently unknown. He states he does have some issues with cognition and has
had difficulty with balance. He denies urinary incontinence.
PMH: Hypertension, prostate cancer, TIA 2014, history of colitis, hypercholesterolemia, BPH (old problem list includes normal pressure hydrocephalus and orthostasis)
PSH: Left total hip arthroplasty, pilonidal cyst
Current meds: Clonidine 0.2 twice daily, tamsulosin 0.4 at bedtime, lisinopril 10 mg twice daily, amlodipine 5 mg at bedtime, atorvastatin 10 mg a day, subcu heparin
118/66, 188/85, pulse 80, he complains of fatigue, denies dyspnea, blood pressure has been labile, some lightheadedness in bathroom, head neck exam unremarkable, lungs are clear
Sodium 137 BUN/creatinine 18 and 0.6 potassium 4.1
Objective
Labs:
01/16/25 04:41
01/17/25 06:11
Labs
Hgb 12.4 g/dL (13.0-18.0) L 01/16/25 04:41
Hct 35.0 % (39.0-52.0) L 01/16/25 04:41
Plt Count 207 10^3/uL (130-400) 01/16/25 04:41
PT 13.2 Sec (11.4-14.6) 01/14/25 22:28
INR 0.95 01/14/25 22:28
APTT 28.4 Sec (23.4-35.0) 01/14/25 22:28
Sodium 137 mmol/L (135-145) 01/17/25 06:11
Potassium 4.1 mmol/L (3.5-5.1) 01/17/25 06:11
BUN 18 mg/dl (9-20) 01/17/25 06:11
Creatinine 0.6 mg/dL (0.7-1.3) L 01/17/25 06:11
Glucose 95 mg/dl (70-99) 01/17/25 06:11
Vital Signs and I&O:
Vital Signs
Temp Pulse Resp BP Pulse Ox
36.9 C 80 20 118/66 94
01/17/25 15:00 01/17/25 17:48 01/17/25 15:00 01/17/25 17:48 01/17/25 15:00
Vital Signs
Temp Pulse Resp BP Pulse Ox
36.9 C 80 20 118/66 94
01/17/25 15:00 01/17/25 17:48 01/17/25 15:00 01/17/25 17:48 01/17/25 15:00
Intake & Output
01/15/25 01/16/25 01/17/25 01/18/25
07:59 07:59 07:59 07:59
Intake Total 400.0 / 425.0 1457.5 / 1457.5 520 / 520
Output Total 1000 / 1000 1450 / 1450 675 / 675 400 / 400
Balance -600.0 / -575.0 7.5 / 7.5 -155 / -155 -400 / -400
Physical Exam
Physical Exam
See above
[2025-01-17] MEDS: MELATONIN 5 MG PO (21:41)
[2025-01-17] MEDS: NORVASC 5 MG PO (21:41)
[2025-01-17] MEDS: FLOMAX 0.4 MG PO (21:41)
[2025-01-18] MEDS: HEPARIN 5000 UNITS SC ×2 (00:49→08:38)
[2025-01-18 03:00] VITALS: BP 157/56
[2025-01-18 07:30] VITALS: BP 153/84
[2025-01-18] MEDS: CATAPRES 0.2 MG PO (08:38)
[2025-01-18] MEDS: ZESTRIL 10 MG PO (08:38)
--- NOTE | 2025-01-18 09:34 | W.PN.HOSP.TC ---
Today's Communication/Plan
-
dc
Assessment / Plan
Assessment / Plan
79yo M with PMHX of prostate CA, HTN, IBS found new NPH on CT head and HTN urgency. Sound Controller adjusted meds and sent renin/aldosterone, catecholamines and metanephrines, will follow as outpatient. Echo: EF 65%, trace MR, with trace AR, no
obvious wall motion abnormalities. BP better controlled. Neurology advised outpatient f/u for NPH - referral to be provided. PT/OT recommended PT at home - Rx provided. medically stable for d/c home
A/P:
#HTN urgency
asymptomatic
Cardio for BP mgmt
Echo: EF 65%, trace MR, with trace AR, no obvious wall motion abnormalities
#NPH
outpatient neurology as discussed with service
#BPH
watch for urinary retention
#malaise
PT/OT for home PT
TSH WNL
#HLD
cont lipitor
DVT ppx hep
Full code
I have spent at least 38min reviewing chart, test results and providing direct patient care
Anticipated Discharge: Today
Subjective/Interval History
-
Date of Service: January 18, 2025
Objective Data
-
Vital Signs:
Vital Signs
Temp Pulse Resp BP Pulse Ox
98.1 F 71 16 153/84 95
01/18/25 07:30 01/18/25 08:38 01/18/25 07:30 01/18/25 08:38 01/18/25 07:30
I&O
01/17/25 01/18/25 01/19/25
06:59 06:59 06:59
Intake Total 520 / 520 240 / 240
Output Total 675 / 675 400 / 400
Balance -155 / -155 -160 / -160
Review of Systems
-
History Source: Patient
All other systems: Reviewed and negative
Physical Exam
-
General: No Apparent Distress
Neuro: Awake, Alert, Oriented and AO x 3
Psych: Calm
--- NOTE | 2025-01-18 09:39 | W.DCSUMMARY ---
Discharge Summary
Discharge Data
Date of Admission: 01/14/25
Date of Discharge: 01/18/25
-
Pending Results: Yes
Additional Pending Results:
renin/aldosterone, catecholamines and metanephrines
Hospital Course
79yo M with PMHX of prostate CA, HTN, IBS found new NPH on CT head and HTN urgency. Credit Operations Specialist adjusted meds and sent renin/aldosterone, catecholamines and metanephrines, will follow as outpatient. Echo: EF 65%, trace MR, with trace AR, no
obvious wall motion abnormalities. BP better controlled. Neurology advised outpatient f/u for NPH - referral to be provided. PT/OT recommended PT at home - Rx provided. BMP in 2 weeks with PCP since Lisinopril increased. medically stable for d/c home
I have spent at least 38min reviewing chart, test results and providing direct patient care
Patient was managed for:
#HTN urgency
#NPH
#BPH
#malaise
#HLD
Discharge Plan
-
Patient Disposition: Home with Home Care
Discharge Diagnosis/Procedures: HTN urgency
Diet: Low Sodium
Driving Restrictions: As prior to admission
Blood Work: BMP in 2 weeks with PCP
Referrals:
Carola Guerrero PA-C [Specified Professional Personl, Cardiology] - 02/19/25 1:20 pm
Referral Note: you have a follow-up appointment at the cardiology office with Dr Rogers's physician prosthetic assistant Carola Guerrero.
Neil Lauren MD [Active, Neurology] - in two to three weeks
Referral Note: for NPH
Yenni Mar MD [Family Provider, Internal Medicine]
Prescriptions:
New
amlodipine 5 mg Tablet
5 mg PO HS Qty: 30 0RF
clonidine HCl 0.2 mg Tablet
0.2 mg PO BID Qty: 60 0RF
lisinopril 10 mg Tablet
10 mg PO BID Qty: 60 0RF
Continued
calcium carbonate-vitamin D3 [Calcium 500 + D] 500 mg-5 mcg (200 unit) Tablet
1 tab PO BID
PreserVision AREDS-2 250-90-40-1 mg Tablet,Chewable
1 tab PO QAM AND QPM
atorvastatin 10 MG tablet
10 mg PO QPM
tamsulosin 0.4 mg Capsule
0.4 mg PO QPM Qty: 30 0RF
Discontinued
aspirin 325 mg Tablet
325 mg PO DAILY
clonidine HCl 0.2 mg Tablet
0.2 mg PO BID
Discharge Orders:
Discharge Patient (As Directed); Ordered 01/18/25
Ordered By: Khris Klein
Discharge Date and Time
Print Language: ETHIOPIAN
--- NOTE | 2025-01-18 10:33 | CM ---
CM reviewed chart, patient seen bedside, for discharge today. CM offered home services to patient, patient declining. Patient provided with IMM, verbally reviewed, placed in chart. Patient confirms will transport home. CM will continue to
follow for all discharge planning needs.
Plan; home no needs.
[2025-01-18 11:38] VITALS: BP 146/73
[2025-01-18] MEDS: PREVNAR 20 0.5 ML IM (12:05)
[2025-01-21 08:11] LABS: Renin Activity Results <0.1 ng/mL/hr
== END 2025-01-18 13:30 | disposition home or self-care (01) | DRG 57 ==
LOC: 4 WEST ACU 20:07
PROVIDERS: Clinical Nurse Specialist Family Health; Internal Medicine; Physician Assistant Medical; ADMITTING PHYSICIAN Internal Medicine; CONSULT PHYSICIAN Internal Medicine Cardiovascular Disease; CONSULT PHYSICIAN Internal Medicine Critical Care Medicine; EMERGENCY PHYSICIAN Emergency Medicine; FAMILY PHYSICIAN Internal Medicine
DX: G91.2 (Idiopathic) normal pressure hydrocephalus (principal); I10 Essential (primary) hypertension; I16.0 Hypertensive urgency; E78.00 Pure hypercholesterolemia, unspecified; K58.9 Irritable bowel syndrome, unspecified; E66.811 Obesity, class 1; M19.90 Unspecified osteoarthritis, unspecified site; D53.9 Nutritional anemia, unspecified; R26.2 Difficulty in walking, not elsewhere classified; N40.0 Benign prostatic hyperplasia without lower urinary tract symptoms; D75.89 Other specified diseases of blood and blood-forming organs; Z96.651 Presence of right artificial knee joint; Z96.642 Presence of left artificial hip joint; Z90.79 Acquired absence of other genital organ(s); Z68.31 Body mass index [BMI] 31.0-31.9, adult; Z79.82 Long term (current) use of aspirin; Z85.46 Personal history of malignant neoplasm of prostate; Z86.19 Personal history of other infectious and parasitic diseases; Z86.73 Personal history of transient ischemic attack (TIA), and cerebral infarction without residual deficits; Z87.891 Personal history of nicotine dependence; Z90.49 Acquired absence of other specified parts of digestive tract; Z79.02 Long term (current) use of antithrombotics/antiplatelets
CPT/HCPCS: 70450; 71046; 80048; 80053; 82088; 82962; 83735; 83835; 83880; 84100; 84244; 84443; 84484; 85025; 85610; 85730; 86803; 93005; 93306; 96374; 97163; 99291; Q9957